=== PATIENT | female | born 1995 | race Caucasian/White ===

== ENCOUNTER 2022-08-25 19:51 | Emergency (ER) | payer SELFPAY ==
[~2022-08-25] VITALS: Ht 144.8 cm; Wt 83.3 kg
[2022-08-25 20:52] VITALS: BP 116/64; PULSE 104; O2SAT 100
[2022-08-26] MEDS ORDERED: ACETAMINOPHEN 325MG TABLET PO ONE (00:45)
[2022-08-26 00:51] VITALS: TEMP 97.9
[2022-08-26 01:03] LABS: BASOPHILS % 0.3 % (0.0-2.0); EOSINOPHILS % 2.1 % (0.0-5.0); HEMATOCRIT. 34.4 % (36.0-48.0); HEMOGLOBIN. 11.4 g/dL (12.0-16.0); LYMPHOCYTES % 42.5 % (20.0-50.0); MEAN CORPUSCULAR HEMOGLOBIN 25.3 pg (28.0-32.0); MEAN CORPUSCULAR VOLUME 76.3 fL (81.0-99.0); MEAN PLATELET VOLUME 7.8 fl (7.4-10.4); MONOCYTES % 3.8 % (2.0-8.0); NEUTROPHILS % 51.3 % (40.0-76.0); PLATELET 273 x1000/uL (130-400); RED BLOOD CELL COUNT 4.51 mill/uL (4.2-5.4); RED CELL DISTRIBUTION WIDTH 16.5 % (11.6-14.6)
[2022-08-26 01:28] LABS: CHLORIDE 111 mEq/L (98-107)
[2022-08-26] MEDS ORDERED: IBUP-2028 MT (02:17)
== END 2022-08-26 03:18 | disposition home or self-care (01) ==
LOC: ER 19:51
DX: M79.89 Other specified soft tissue disorders (principal)
CPT/HCPCS: 36415; 80053; 85025; 99283